=== PATIENT | female | born 1950 | race Caucasian/White ===

== ENCOUNTER → 2024-04-28 | Outpatient (CLI) | payer BC | END | disposition home or self-care (01) | LOC: LABPAT 13:46 | PROVIDERS: ATTEND Orthopaedic Surgery | DX: Z01.812 Encounter for preprocedural laboratory examination (principal); Z22.322 Carrier or suspected carrier of Methicillin resistant Staphylococcus aureus; M16.12 Unilateral primary osteoarthritis, left hip | CPT/HCPCS: 86850; 86900; 86901; 87070 ==

== ENCOUNTER 2024-05-05 08:03 | Day surgery (SDC) | payer MEDICARE ==
--- NOTE | 2024-05-04 14:03 | HP ---
HISTORY AND PHYSICAL DATE OF SURGERY: 05/05/2024. HISTORY OF PRESENT ILLNESS: Silvia Ortega, 74-year-old patient seen with symptomatic left hip osteoarthritis. After treatment options were discussed, she elected to proceed with direct anterior left total hip arthroplasty. Consent regarding the procedure was obtained. Medical clearance was provided by Dr. Renetta Henderson. PAST MEDICAL HISTORY: Hypertension, hyperlipidemia, osteoarthritis. PAST SURGICAL HISTORY: Knee arthroscopy, knee unicompartmental arthroplasty. DAILY MEDICATIONS: 1. Amlodipine. 2. Celebrex. 3. Hydrochlorothiazide. 4. Lovastatin. ALLERGIES: None reported. SOCIAL HISTORY: She denies tobacco use. PHYSICAL EVALUATION OF THE LEFT HIP: She has limited range of motion with severe pain. Positive hip impingement sign. Straight-leg raise negative. Distal neurovascular exam is intact. IMAGING STUDIES: Radiographs of the left hip revealed severe osteoarthritic changes. IMPRESSION: 1. Left hip osteoarthritis. 2. Hypertension. 3. Hyperlipidemia. PLAN: Direct anterior left total hip arthroplasty. MMODL / IJN: [id number] /
[~2024-05-05 08:03] MED LIST: TRANEXAMIC 1,000 MG/100ML-NACL 1,000 MG in SALINE 1 100ML.BAG IVPB PRN
[2024-05-05] MEDS ORDERED: LIDOCAINE 1% (10MG/ML) FOR IV START INTRADERMA PRN (08:31)
[2024-05-05] MEDS: IV FLUID CONTINUATION 1,000 ML IV ONE (08:47)
[2024-05-05] MEDS: LACTATED RINGERS 1,000 ML IV SCH (09:07)
[2024-05-05] MEDS: ONDANSETRON 4 MG/2 ML VIAL IVP ONE (09:17)
[2024-05-05] MEDS: MELOXICAM 7.5 MG TAB PO PRN (09:17)
[2024-05-05] MEDS: ACETAMINOPHEN TAB 500 MG TAB PO PRN (09:17)
[2024-05-05] MEDS: DEXAMETHASONE SOD PHOSPHATE 4 MG/ML 1 ML VIAL IV ONE (09:17)
[2024-05-05] MEDS: MIDAZOLAM 2 MG/2 ML VIAL IV ONE (09:29)
[2024-05-05] MEDS ORDERED: MIDAZOLAM 2 MG/2 ML VIAL ONE (09:46)
[2024-05-05] MEDS ORDERED: PROPOFOL 10 MG/ML 20 ML VIAL IV ONE (09:46)
[2024-05-05] MEDS ORDERED: ePHEDrine 50 MG/ML 1 ML VIAL ONE (09:46)
[2024-05-05] MEDS ORDERED: DEXAMETHASONE SOD PHOSPHATE 4 MG/ML 1 ML VIAL ONE (09:46)
[2024-05-05] MEDS ORDERED: PHENYLEPHRINE 10 MG/ML VIAL ONE (09:46)
[2024-05-05] MEDS ORDERED: TRANEXAMIC 1,000 MG/100ML-NACL PREMIX BAG ONE (09:46)
[2024-05-05] MEDS ORDERED: ROPIVACAINE 5 MG/ML 30 ML VIAL ONE (09:46)
[2024-05-05] MEDS: ceFAZolin 1,000 MG in SODIUM CHLORIDE 0.9% 1,000 ML IRRIGATION ONE (10:19)
[2024-05-05] MEDS ORDERED: HYDROcodone/APAP 5-325MG 1 EACH TAB PO PRN (11:11)
[2024-05-05] MEDS ORDERED: HYDROmorphone 0.5 MG/0.5 ML SYRINGE IVP PRN ×2 (11:11)
[2024-05-05] MEDS ORDERED: NALOXONE 0.4 MG/ML 1 ML VIAL IV PRN (11:11)
--- NOTE | 2024-05-05 11:11 | P.OP ---
Date of Procedure: 05/05/24 Preoperative Diagnosis: Left hip osteoarthritis Postoperative Diagnosis: Left hip osteoarthritis Procedure(s) Performed: Direct anterior left total hip arthroplasty Implants: 1. DePuy [place] 135 degree standard collared KA size 11 press-fit femoral stem 2. DePuy [place] 52 mm press-fit acetabular shell 3. DePuy [place] neutral polyethylene acetabular liner 36 mm ID 52 mm OD 4. Biolox delta ceramic femoral head +1.5 36 mm Anesthesia: regional (Erector spinae block), spinal Surgeon: Modesto Aguayo Fsr #1: Rigoberto Castellanos Estimated Blood Loss (ml): 40 Pathology: none sent Condition: stable Disposition: PACU Indications for Procedure: 74-year-old patient seen with symptomatic left hip osteoarthritis. After having treatment options discussed, she elected to proceed with direct anterior left total hip arthroplasty. Operative Findings: See description of procedure Description of Procedure: The patient was taken to the operative suite. Patient underwent a spinal anesthetic by the department of anesthesia. Patient was then transferred to the [place] table. Patient was given preoperative IV antibiotics and TXA. Both lower extremities were placed in standard leg spars. The hip was then prepped and draped in the normal sterile orthopedic fashion. A standard anterior incision was made beginning 3 cm lateral and 1 cm distal to the ASIS extending 10 cm. Dissection was then carried down through the subcutaneous soft tissues down to the fascia overlying the tensor fascia tana. An incision was now made through the fascia. Careful dissection was taken down exposing the tensor fascia tana muscle. A Cobra retractor was now placed along the medial femoral neck and a second one along the lateral femoral neck. The venous circumflex vessels were now identified, cauterized and clipped. We identified the anterior hip capsule. An incision was made through the hip capsule along the lateral border. I performed a partial anterior capsulectomy. Retractors were now placed around the femoral neck itself. A femoral neck cut was now made with a sagittal saw. It was completed with an osteotome at the lateral neck area. The femoral head was now removed without difficulty. The extremity was now rotated to 60 of external rotation. It was locked in position. Residual labrum was now debrided out. Serial reaming was performed of the acetabulum while Zeferino COLBY assisted holding an anterior retractor for exposure. Once we reached the appropriate size and a trial was position and fit nicely. The appropriate size was now chosen opened and made available. It was introduced into the acetabulum without difficulty. The C-arm/fluoroscopy was now brought into the operative field. We made sure we had a true AP pelvic view. We now under direct C- arm/fluoroscopy introduced into the acetabular component with appropriate version and inclination. I held the cup in appropriate position while Zeferino COLBY used a mallet to seat the acetabular component. I noted the component now to be well seated and stable. Acetabular cup introduce her was removed. The C-arm was pulled back. An appropriate liner was introduced and clicked into position. It was felt to be stable. At this point retractors were removed. The extremity was now placed into 140 external rotation with no traction. The leg was now dropped to the ground and adducted. Appropriate retractors were now positioned along the proximal femur. We also placed our femoral look into position. Additional capsular releasing was performed to gain access to the proximal femur. We now used a box osteotome. A canal finder was now utilized. Serial broaching was now performed with the assistance of Zeferino COLYB tapping the broaches down with a mallet while held the broach in appropriate rotation and position. This was done until we reached the appropriate size with good overall rotational stability. Appropriate calcar planing was performed. A trial head/neck was placed into position. The hip was now reduced. The C- arm/fluoroscopy was brought back into the operative field. I obtained an AP pelvis which demonstrated adequate leg length alignment. The trial components appeared adequately sized and positioned. The C-arm/fluoroscopy was pulled back. Retractors were repositioned and the hip was dislocated. The leg was again taken down to the ground and adducted. Appropriate retractors were repositioned as well as the femoral hook. All trial components were removed. The femoral implant was opened along with the femoral head. The femoral implant was introduced on the appropriate handle into our pre-broached area. I held the component position well Zeferino COLBY used a mallet to seat the femoral component. The femoral component was now noted to be well seated and stable.. The femoral head was introduced with good positioning and fixation noted. Retractors were now removed. The hip was now reduced. There appeared be good positioning of the hip confirmed on intraoperative fluoroscopy. Spot films were obtained to document this. A second gram of TXA was given. Bipolar cautery had been utilized intermittently through the procedure for hemostasis. The wound was irrigated copiously with pulse lavage mechanical irrigation. The fascia was repaired with Vicryl suture. The subcutaneous soft tissues were repaired in layers with Vicryl suture. The skin was approximated with pernio/Dermabond. Sterile dressings were applied. Patient was then awakened, transferred to a bed and taken to recovery in stable condition. Zeferino COLBY assisted with the complex procedure.
--- NOTE | 2024-05-05 11:24 | XR ---
Fluoroscopy History: M16.12 OA LEFT HIP 9 sec fluoro, dap .2770 [facility], , 05/05/2024 11:21 AM
[2024-05-05] MEDS: LACTATED RINGERS 1,000 ML IV ONE (11:27)
[2024-05-05] MEDS: HYDROmorphone 0.5 MG/0.5 ML SYRINGE IVP PRN ×2 (11:35→15:55)
[2024-05-05] MEDS: droPERidol 5 MG/2 ML VIAL IVP PRN (12:01)
[2024-05-05] MEDS: MEPERIDINE 50 MG/ML SYRINGE IVP STA (12:13)
--- NOTE | 2024-05-05 14:57 | FL ---
Fluoroscopy History: M16.12 OA LEFT HIP 9 sec fluoro, dap .2770 [facility], , 05/05/2024 2:55 PM
[2024-05-05] MEDS: MULTIVITAMINS, THERA 1 EACH TAB PO SCH (15:47)
[2024-05-05] MEDS: SODIUM CHLORIDE 0.9% 1,000 ML IV SCH (15:47)
--- NOTE | 2024-05-05 17:16 | P.CONS ---
History of Present Illness - Reason for Consult Consult date: 05/05/24 Medical management Requesting physician: Modesto Aguayo - Chief Complaint Left hip surgery - History of Present Illness 74-year-old patient who follows with Dr. Renetta Henderson. Patient undergone left hip hemiarthroplasty. Postsurgery rather groggy sleepy. at the bedside. Chronic stable medical conditions include hypertension, hyperlipidemia, osteoarthritis, palpitations since COVID. Review of systems: Patient rather groggy currently. Postanesthesia Social history: . Alcohol occasionally. No smoking. Physical examination: VITAL SIGNS: 97.9, 86, 17, 103 x 57, 96% on 2 L GENERAL: BMI 24, laying in bed lethargic groggy. EYES: Pupils equal. Conjunctiva jerry l. HEENT: External appearance of nose and ears normal, oral cavity grossly normal. NECK: JVD not raised; masses not palpable. HEART: First and second heart sounds are normal; no edema. LUNGS: Respiratory rate normal; clear to auscultation. ABDOMEN: Soft, nontender, liver spleen not palpable, no masses palpable. PSYCH: Sleepy lethargic l. MUSCULOSKELETAL:No Clubbing/cyanosis;muscles-grossly intact, OA. Dressing over the left hip incision site NEUROLOGICAL: Cranial nerves grossly intact; no facial asymmetry, power and sensation grossly intact. LYMPHATICS: No lymph nodes palpable in the axilla and neck Assessment plan: -Left total hip hemiarthroplasty, anterior Aspirin for DVT prophylaxis. IV cefazolin for infection prophylaxis. Decadron x 1 dose. -Essential hypertension Currently blood pressure running a bit on the lower side. Will resume amlod ipine at half the dose at 5 mg a day. Hold hydrochlorothiazide -Hyperlipidemia Mevacor 40 mg nightly -Primary osteoarthritis Pain control as needed -Full code -Care was discussed with at the bedside. Medications as above. Thank you Dr. Braun Past Medical History Past Medical History: Hyperlipidemia, Hypertension Additional Past Medical History / Comment(s): palpitations at times since covid History of Any Multi-Drug Resistant Organisms: None Reported Past Surgical History: Joint Replacement, Orthopedic Surgery Additional Past Surgical History / Comment(s): partial knee lft replacement, arthoscopic rt and left knee, Additional Past Anesthesia/Blood Transfusion Reaction / Comm: no blood trans hx Smoking Status: Never smoker - Past Family History Father Family Medical History: No Reported History Medications and Allergies Home Medications Medication Instructions Recorded Confirmed Type Celecoxib 200 mg PO BID 04/29/24 04/29/24 History Citrocal 2 tab PO DAILY 04/29/24 04/29/24 History Lovastatin [Mevacor] 40 mg PO HS 04/29/24 04/29/24 History Magnesium(Unk) 1 tab PO TID 04/29/24 04/29/24 History Tumeric (Unk) 1 tab PO DAILY 04/29/24 04/29/24 History Vit C(Unk) 1 tab PO DAILY 04/29/24 04/29/24 History Vit D3(Unk) 1 tab PO DAILY 04/29/24 04/29/24 History Vit E(Unk) 1 dose TOPICAL DAILY PRN 04/29/24 04/29/24 History amLODIPine 10 mg PO DAILY 04/29/24 05/05/24 History hydroCHLOROthiazide 25 mg PO DAILY 04/29/24 04/29/24 History Allergies Allergy/AdvReac Type Severity Reaction Status Date / Time No Known Allergies Allergy Verified 05/05/24 08:37 Physical Exam Vitals: Vital Signs Temp Pulse Pulse Resp BP Pulse Ox 05/05/24 16:05 97.9 F 86 17 103/57 96 05/05/24 14:46 84 16 119/59 98 05/05/24 14:30 81 16 136/78 98 05/05/24 14:15 82 16 119/55 98 05/05/24 14:02 78 16 119/68 98 05/05/24 13:45 81 16 129/72 98 05/05/24 13:31 77 16 124/64 98 05/05/24 13:15 82 16 125/64 98 05/05/24 13:01 79 16 119/62 98 05/05/24 12:45 83 16 111/61 99 05/05/24 12:31 77 16 119/64 99 05/05/24 12:16 76 16 145/70 100 05/05/24 12:02 87 16 143/84 100 05/05/24 11:46 84 16 119/71 100 05/05/24 11:29 97.3 F L 74 16 109/54 100 05/05/24 09:40 67 16 139/70 100 05/05/24 09:10 97.9 F 85 16 161/82 98 Intake and Output 05/05/24 05/05/24 05/05/24 06:59 14:59 22:59 Intake Total 1301 Output Total 390 Balance 911 Intake: IV 1301 Output: Urine 350 Estimated Blood Loss 40 Other: Weight 59.4 kg
[2024-05-05] MEDS: HYDROcodone/APAP 7.5-325MG 1 EACH TAB PO PRN (18:44)
[2024-05-05] MEDS: ONDANSETRON 4 MG/2 ML VIAL IVP PRN (18:48)
[2024-05-05] MEDS: ATORVASTATIN 10 MG TAB PO SCH (21:15)
[2024-05-05] MEDS: ASPIRIN 325 MG TAB PO SCH (21:15)
[2024-05-05] MEDS: SENNOSIDES-DOCUSATE SODIUM 1 EACH TAB PO SCH (21:16)
[2024-05-06 03:17] VITALS: RESP 17
[2024-05-06] MEDS: amLODIPine 5 MG TAB PO SCH (08:23)
[2024-05-06] MEDS: FAMOTIDINE 20 MG TAB PO SCH (08:23)
[2024-05-06 08:25] LABS: Basophils # (A) 0 X 10*3/uL (0.00-0.10); Basophils % (A) 0 %; Eosinophils # (A) 0 X 10*3/uL (0.04-0.35); Eosinophils % (A) 0 %; HCT 30.7 % (37.2-46.3); HGB 10.5 g/dL (12.0-15.0); Lymphocytes # (A) 0.84 X 10*3/uL (0.90-5.00); Lymphocytes % (A) 11.1 %; MCH 30.7 pg (27.0-32.0); MCHC 34.2 g/dL (32.0-37.0); MCV 89.8 FL (80.0-97.0); Mean Platelet Volume 10.3 FL (9.5-12.2); Monocytes # (A) 0.76 X 10*3/uL (0.20-1.00); NRBC Per 100 WBC 0 X 10*3/uL (0.00-0.01); Neutrophils # (A) 5.98 X 10*3/uL (1.80-7.70); Neutrophils % (A) 78.6 %; Platelet Count 227 X 10*3/uL (140-440); RBC 3.42 X 10*6/uL (4.10-5.20); RDW 12.9 % (11.5-14.5)
[2024-05-06 08:40] VITALS: BP 106/52; PULSE 77; TEMP 98
--- NOTE | 2024-05-06 10:15 | P.PN ---
Subjective Progress Note Date: 05/06/24 Principal diagnosis: Status post left total hip arthroplasty Patient evaluated at bedside, they are doing very well, is present. She is ambulated very well with therapy. Her pain is well-controlled. She denies headaches, lightheadedness, chest pain or shortness of breath Objective - Vital Signs Vital signs: Vital Signs Temp 98.0 F 05/06/24 07:10 Pulse 77 05/06/24 07:10 Resp 17 05/06/24 07:10 BP 106/52 05/06/24 07:10 Pulse Ox 95 05/06/24 07:10 FiO2 Intake & Output 05/05/24 05/06/24 05/06/24 18:59 06:59 18:59 Intake Total 1301 200 Output Total 390 Balance 911 200 Weight 59.4 kg Intake: IV 1301 Oral 200 Output: Urine 350 Estimated Blood Loss 40 Other: Voiding Method Toilet # Voids 1 2 1 - Exam Left lower extremity: Incision is clean, dry, and intact. The foam dressing is in good condition. There is minimal soft tissue swelling and ecchymosis surrounding the medial and lateral aspects of the incision. Calf is soft, no tenderness with palpation. Plantar flexion, dorsiflexion, EHL, FHL are intact. Sensory exam to light touch throughout the extremity is intact, dorsal pedis pulses 2+. - Labs CBC & Chem 7: 05/06/24 03:49 Labs: Abnormal Lab Results - Last 24 Hours (Table) 05/06/24 Range/Units 03:49 RBC 3.42 L (4.10-5.20) X 10*6/uL Hgb 10.5 L (12.0-15.0) g/dL Hct 30.7 L (37.2-46.3) % Lymphocytes # 0.84 L (0.90-5.00) X 10*3/uL Eosinophils # 0 L (0.04-0.35) X 10*3/uL Assessment and Plan Assessment: Postoperative day #1 status post direct anterior total hip arthroplasty Plan: Pain control, plan for discharge home on [place], will also utilize stool softener DVT prophylaxis, aspirin 81 mg twice a day for 30 days Wound care instructions discussed, this to include icing elevating, use of bandages and showering instructions home therapy/nursing after discharge medical recommendations appreciated Discharge planning: Patient stable for discharge home today Time with Patient: Less than 30
--- NOTE | 2024-05-06 10:17 | P.DS ---
Providers Date of admission: 05/05/2024 Expected date of discharge: 05/06/24 Attending physician: Modesto Aguayo Consults: 05/05/24 11:11 Consult Physician Routine Consulting Provider: Harsha Iniguez Consult Reason/Comments: Medical management Do you want consulting provider notified?: Yes Primary care physician: Renetta Henderson Hospital Course: Date of admission: 05/05/2024 Date of discharge: 05/06/2024 Admission diagnosis: Status post direct anterior left total hip arthroplasty Discharge diagnosis: Same Attending physician: Dr. Aguayo Surgical procedures: Direct anterior left total hip arthroplasty Brief history: Patient is a 74-year-old female with a history of progressive primary left hip osteoarthritis. At this point patient has failed conservative treatment measures and has opted to proceed with a elective direct anterior left total hip arthroplasty. Hospital course: Details of patient's surgery can be found in operative report. Patient tolerated the procedure well and was subsequently transported to orthopedic floor. Patient's orthopeidc and medical care was provided daily. Patient had daily laboratory tests performed for evaluation of overall blood counts. Patient had daily physical therapy to include strengthening range of motion as well as education with walker ambulation. Patient was treated with aspirin for their postoperative DVT prophylaxis during their inpatient stay. Patient was noted to have a relatively uneventful postoperative course. Patient reported satisfactory pain control with oral pain medications by postoperative day 0. Patient showed satisfactory progress with physical therapy. Patient moved steadily through the program and had no difficulty meeting the goals by postoperative day 1. Given patient's otherwise satisfactory course and having met physical therapy goals, plan is to discharge patient home on postoperative day 1. Discharge condition/disposition: Patient will be discharged home in stable cond ition. Discharge medications: Instructions are given on resumption of patient's normal daily medications per primary care recommendation, in addition patient will be prescribed [place] 7.5 mg / 325 mg, senna S, aspirin 81 mg. Discharge instructions: 1. Wound care and infection precautions, keep incision dry and covered while showering, no lotions, creams, moisturizers. No soaking, tubs, pools, hottubs. Do not scrub over the incision. 2. Weight-bear as tolerated with walker / cane until follow-up. 3. Ice and elevate when necessary. Do not exceed 20 minutes per hour with ice pack. 4. Utilize compression sleeve until seen at first follow up appointment. 5. Visiting nursing care. 6. Home physical therapy. 7. Pain meds and anticoagulants per prescription. 8. Pain medication has potential to cause constipation. Increase oral fluid and fiber intake. Contact primary care provider if you have not had a bowel movement within 48 hours after discharge 9. No anti-inflammatory medication until discussed at first post operative visit, this including Motrin, Aleve, Mobic, Diclofenac. 10. Follow up in office at 2 weeks postop with Zeferino Castellanos PA-C/Miko Nicholson 11. Follow up with your primary care doctor 7-10 days after discharge. 12. Contact [facility] with any questions, . Procedures: Direct anterior left total hip arthroplasty Patient Condition at Discharge: Good Plan - Discharge Summary Discharge Rx Participant: No New Discharge Prescriptions: New Aspirin [Adult Low Dose Aspirin EC] 81 mg PO BID #60 tab HYDROcodone/APAP 7.5-325MG [[place] 7.5] 1 each PO Q6HR PRN #28 tab PRN Reason: Pain Sennosides/Docusate Sodium [Senna-S 8.6-50 mg Tablet] 2 each PO DAILY PRN #30 tablet PRN Reason: Constipation No Action Vit E(Unk) 1 dose TOPICAL DAILY PRN PRN Reason: scar prevention Vit D3(Unk) 1 tab PO DAILY Tumeric (Unk) 1 tab PO DAILY Citrocal 2 tab PO DAILY amLODIPine 10 mg PO DAILY Lovastatin [Mevacor] 40 mg PO HS hydroCHLOROthiazide 25 mg PO DAILY Vit C(Unk) 1 tab PO DAILY Magnesium(Unk) 1 tab PO TID Celecoxib 200 mg PO BID Discharge Medication List Celecoxib 200 mg PO BID 04/29/24 [History] Citrocal 2 tab PO DAILY 04/29/24 [History] Lovastatin [Mevacor] 40 mg PO HS 04/29/24 [History] Magnesium(Unk) 1 tab PO TID 04/29/24 [History] Tumeric (Unk) 1 tab PO DAILY 04/29/24 [History] Vit C(Unk) 1 tab PO DAILY 04/29/24 [History] Vit D3(Unk) 1 tab PO DAILY 04/29/24 [History] Vit E(Unk) 1 dose TOPICAL DAILY PRN 04/29/24 [History] amLODIPine 10 mg PO DAILY 04/29/24 [History] hydroCHLOROthiazide 25 mg PO DAILY 04/29/24 [History] Aspirin [Adult Low Dose Aspirin EC] 81 mg PO BID #60 tab 05/06/24 [Rx] HYDROcodone/APAP 7.5-325MG [[place] 7.5] 1 each PO Q6HR PRN #28 tab 05/06/24 [Rx] Sennosides/Docusate Sodium [Senna-S 8.6-50 mg Tablet] 2 each PO DAILY PRN #30 tablet 05/06/24 [Rx] Follow up Appointment(s)/Referral(s): Rigoberto Castellanos, PAC [PHYSICIAN AUTOMATIC SERGING MACHINE OPERATOR] - 05/21/24 3:20 pm Activity/Diet/Wound Care/Special Instructions: orthopedic Discharge Instructions: 1. Wound care and infection precautions, keep incision dry and covered while showering, no lotions, creams, moisturizers. No soaking, pools, hot tubs. Do not scrub over incision. 2. Weight-bear as tolerated with walker / cane until follow-up. 3. Ice and elevate when necessary. Do not exceed 20 minutes per hour with ice pack. 4. Utilize compression sleeve until seen at first follow up appointment. 5. Pain meds and anticoagulants per prescription. 6. Pain medication has potential to cause constipation. Increase oral fluid and fiber intake. Contact primary care provider if you have not had a bowel movement within 48 hours after discharge. 7. No anti-inflammatory medication until discussed at first post operative visit, this including Motrin, Aleve, Mobic, Diclofenac. 8. Follow up in office at 2 weeks postop with Zeferino Castellanos PA-C/Miko Manley PA-C 9. Follow up with your primary care doctor 7-10 days after discharge. 10. Contact [facility] with any questions, . Wound care instructions: 1. Okay to remove surgical dressing as of 05/15/2024 2. Okay to shower directly over the incision after removal of dressing Discharge Disposition: HOME WITH HOME HEALTH SERVICES
--- NOTE | 2024-05-06 12:21 | P.ANPRN ---
Procedure Note - Anesthesia - Nerve Block Performed Left Maximiliano Single Time Out Performed: Yes Date of Procedure: 05/05/24 Procedure Start Time: : Procedure Stop Time: :33 Location of Patient: PreOp Indication: Acute Post-Operative Pain, Requested by Surgeon Sedation Type: Sedate with meaningful contact maintained Preparation: Sterile Prep Position: Supine Needle Types: [place] Needle Gauge: 21 Ultrasound used to visualize needle placement: Yes Ultrasound used to observe medication spread: Yes Blood Aspirated: No Pain Paresthesia on Injection Noted: No Resistance on Injection: Normal Image Stored and Saved: Yes Events: Uneventful and Well Tolerated (Ropivacaine 0.5% 20 cc plus dexamethasone 4 mg)
== END 2024-05-06 11:08 | disposition home health service (06) ==
LOC: OR 08:03 → 4SSUR 14:54 → OR 05-06 11:08
PROVIDERS: ATTEND Orthopaedic Surgery
DX: M16.12 Unilateral primary osteoarthritis, left hip
CPT/HCPCS: 64447; 73501; 85025